=== PATIENT | female | born 1990 | race African-American/Black ===

== ENCOUNTER 2021-03-28 15:36 | Inpatient (IN) | payer OTHER ==
[2021-03-28 16:10] LABS: Hemoglobin 10.8 g/dL (12.0-15.5); Mean Corpuscular HGB CONC 30.2 g/dL (32.0-36.0); Mean Corpuscular Volume 86.1 fl (81.6-98.3); Mean Platelet Volume 9.2 fl (7.4-10.4); Platelet Count 393 10x3/uL (150-450); RBC Distribution Width 13.7 % (11.5-14.5); Red Blood Cell (RBC) Count 4.16 10x6/uL (3.90-5.03); White Blood Cell (WBC) Count 22.8 10x3/uL (3.5-10.5)
[2021-03-28 16:14] LABS: BHCG - Serum POSITIVE (NEGATIVE); Pregs Control Background? CLEAR/WHITE (CLR/WHITE); Pregs Control Bar Appear? YES (CONTROL BAR)
[2021-03-28 16:22] LABS: ALT (SGPT) 13 U/L (8-55); AST (SGOT) 14 U/L (5-34); Albumin 4.4 g/dL (3.5-5.0); Alkaline Phosphatase 86 U/L (40-110); Anion Gap 29 mmol/L (10-20); BUN (Urea Nitrogen) 26 mg/dL (7.0-18.7); Bilirubin, Total 0.5 mg/dL (0.2-1.2); Calc. Creatinine Clearance 0 mL/min (70-130); Calcium 9.3 mg/dL (7.8-10.44); Chloride 91 mmol/L (98-107); Globulin 4.3 g/dL (2.4-3.5); Lipase 18 U/L (8-78); Magnesium 2.2 mg/dL (1.6-2.6); Potassium 5.3 mmol/L (3.5-5.1); Protein, Total 8.7 g/dL (6.0-8.3); Sodium 124 mmol/L (136-145)
[2021-03-28 16:24] LABS: Carbon Dioxide 9 mmol/L (22-29); Glucose 737 mg/dL (70-105)
[2021-03-28 16:35] LABS: ALV-art Gradient 26.685 mmHg (0-20); CO2 Tension 21.9 mmHg (35.0-45.0); Calcium, Ionized (arterial) 1.17 mmol/L (1.12-1.30); Carboxyhemoglobin (COHb) 0.3 gm% (0.0-3.0); Hemoglobin (Hb) 10.8 g/dL (12.0-16.0); O2 Tension (PaO2), arterial 174.1 mmHg (80.0-100.0); Puncture Site RBA; pH, Arterial 7.28 (7.35-7.45)
[2021-03-28] MEDS ORDERED: Insulin Regular 300 UNITS/3 ML VIAL ONE (16:44)
[2021-03-28] MEDS ORDERED: Ondansetron PF 4 MG/2 ML Vial ONE (16:44)
[2021-03-28] MEDS ORDERED: Morphine 4 MG/ML VIAL ONE (16:44)
[2021-03-28] MEDS ORDERED: INSULIN REGULAR IN 0.9 % NACL 100 UNIT/100 ML BAG ONE (16:45)
[2021-03-28 16:52] LABS: MDiff Complete? YES
[2021-03-28 16:55] LABS: Lymphocytes 7 % (21-51)
[2021-03-28 16:56] LABS: Monocytes 3 % (0-10); Neutrophil 90 % (42-75)
[2021-03-28] MEDS ORDERED: Electrolyte Replacement Protocol 1 EACH IVPB PRN (16:56)
[2021-03-28] MEDS ORDERED: Sodium Chloride 0.9% 1,000 ML IV PRN ×4 (16:56)
[2021-03-28] MEDS ORDERED: Senokot S 8.6-50 MG TAB PO PRN (16:56)
[2021-03-28] MEDS ORDERED: NS 0.9% w/ 20 MEQ KCL 1,000 ML IV PRN ×2 (16:56)
[2021-03-28] MEDS ORDERED: Dextrose 5 %-0.45 % NaCl 1,000 ML IV PRN (16:56)
[2021-03-28 16:57] LABS: Hypochromia SLIGHT = 6-15 cells (100X) (0-5/hpf); Platelet Morphology Comment Appears Adequate
[2021-03-28 17:11] LABS: SARS-CoV-2 NAA Rapid Test DETECTED (NotDetected)
[2021-03-28] MEDS ORDERED: INSULIN REGULAR IN 0.9 % NACL 100 UNIT in Premix Bag 1 BAG IVPB SCH (17:15)
[2021-03-28 17:28] LABS: Bilirubin Neg (Negative); Blood, Urine Negative (Negative); Clarity Clear (Clear); Glucose, Urine (Dipstick) >=1000 mg/dL (Negative); Ketone, Urine 150 mg/dL (Negative); Leukocyte Negative (Negative); Nitrite Negative (Negative); Protein, Urine (Dipstick) 30 mg/dl (Neg-Trace); Specific Gravity, Urine 1.015 (1.002-1.036); Urobilinogen Normal mg/dL (Less than 2)
[2021-03-28] MEDS ORDERED: Morphine 2 MG/ML VIAL SLOW IVP PRN (17:29)
[2021-03-28 17:37] LABS: Bacteria/HPF None Seen HPF (None Seen); Mucous/LPF 1+ LPF (<2+); RBC/HPF 0-3 HPF (0-3); Squamous Epithelial 0-3 HPF (0-3); WBC/HPF 0-3 HPF (0-3)
[2021-03-28 17:50] LABS: Anion Gap 29 mmol/L (10-20); BUN (Urea Nitrogen) 26 mg/dL (7.0-18.7); Calc. Creatinine Clearance 0 mL/min (70-130); Calcium 8.8 mg/dL (7.8-10.44); Carbon Dioxide 10 mmol/L (22-29); Chloride 93 mmol/L (98-107); Potassium 4.6 mmol/L (3.5-5.1); Sodium 127 mmol/L (136-145)
[2021-03-28 17:54] LABS: Glucose 623 mg/dL (70-105)
[2021-03-28 18:24] VITALS: BMI 24.0
[2021-03-28 18:53] LABS: Lactic Acid 2.9 mmol/L (0.5-2.2)
[2021-03-28] MEDS: D5 1/2 NS w/20 mEq KCL 1,000 ML IV PRN ×2 (19:59→23:58)
[2021-03-28] MEDS: Ondansetron PF 4 MG/2 ML Vial IVP PRN (19:59)
[2021-03-28] MEDS: Morphine 4 MG/ML VIAL SLOW IVP PRN (20:03)
[2021-03-28] MEDS: Famotidine/PF 20 mg/2ml Vial SLOW IVP SCH (21:20)
[2021-03-28 21:24] LABS: Anion Gap 19 mmol/L (10-20); BUN (Urea Nitrogen) 24 mg/dL (7.0-18.7); Calc. Creatinine Clearance 59 mL/min (70-130); Calcium 8.3 mg/dL (7.8-10.44); Carbon Dioxide 14 mmol/L (22-29); Chloride 102 mmol/L (98-107); Glucose 287 mg/dL (70-105); Potassium 4.2 mmol/L (3.5-5.1); Sodium 131 mmol/L (136-145)
[2021-03-28] MEDS: Sucralfate 1 GM TAB PO SCH (22:40)
[2021-03-28] MEDS: Mag-Al 1200 mg/1200 mg/30 ML UDCUP PO PRN (22:53)
[2021-03-29] MEDS ORDERED: HYDROmorphone 0.5 MG/0.5 ML SYRINGE SLOW IVP SCH ×2 (01:00→08:30)
[2021-03-29 01:18] LABS: Anion Gap 12 mmol/L (10-20); BUN (Urea Nitrogen) 19 mg/dL (7.0-18.7); Calc. Creatinine Clearance 66 mL/min (70-130); Calcium 8.4 mg/dL (7.8-10.44); Carbon Dioxide 19 mmol/L (22-29); Chloride 104 mmol/L (98-107); Glucose 191 mg/dL (70-105); Potassium 3.9 mmol/L (3.5-5.1); Sodium 131 mmol/L (136-145)
[2021-03-29 04:03] LABS: Anion Gap 11 mmol/L (10-20); BUN (Urea Nitrogen) 16 mg/dL (7.0-18.7); Calc. Creatinine Clearance 75 mL/min (70-130); Calcium 8.4 mg/dL (7.8-10.44); Carbon Dioxide 18 mmol/L (22-29); Chloride 106 mmol/L (98-107); Glucose 123 mg/dL (70-105); Potassium 4.3 mmol/L (3.5-5.1); Sodium 131 mmol/L (136-145)
[2021-03-29 04:08] LABS: #Monocytes 1.7 10x3/uL (0.0-1.1); #Neutrophils 15.1 10x3/uL (1.5-8.4); %Basophils 0.2 % (0.0-2.0); %Eosinophils 0.1 % (0.0-6.0); %Lymphocytes 10.8 % (18.0-47.0); %Neutrophils 79.1 % (40.0-75.0); Mean Corpuscular Hemoglobin 26.5 pg (27.0-33.0); Mean Corpuscular Volume 80.3 fl (81.6-98.3); Mean Platelet Volume 9.2 fl (7.4-10.4); Platelet Count 325 10x3/uL (150-450); RBC Distribution Width 13.5 % (11.5-14.5); White Blood Cell (WBC) Count 19.2 10x3/uL (3.5-10.5)
[2021-03-29] MEDS: D5 1/2 NS w/20 mEq KCL 1,000 ML IV PRN (04:08)
[2021-03-29 05:29] LABS: Amphetamine Not Detected (NotDetected); Barbiturates Screen Not Detected (NotDetected); Benzodiazepine Screen Not Detected (NotDetected); Cocaine Metabolite Screen Not Detected (NotDetected); Methadone Not Detected (NotDetected); Methamphetamine Not Detected (NotDetected); Opiate Screen Detected (NotDetected); Oxycodone Screen Not Detected (NotDetected); Phencyclidine (PCP) Not Detected (NotDetected); THC/Cannabinoid Screen Not Detected (NotDetected); Tricyclic Screen Not Detected (NotDetected)
[2021-03-29] MEDS: Morphine 4 MG/ML VIAL SLOW IVP PRN ×5 (06:00→21:03)
[2021-03-29] MEDS: Famotidine/PF 20 mg/2ml Vial SLOW IVP SCH (08:03)
[2021-03-29] MEDS ORDERED: Lidocaine 2% Viscous Solution 20 ML, Aluminum & Magnesium Hydroxide 30 ML, Donnatal Eli... SSW SCH (08:15)
[2021-03-29] MEDS ORDERED: Dextrose 5% in Water 1,000 ML IV PRN (08:19)
[2021-03-29] MEDS: Pantoprazole 40 MG VIAL IVP SCH ×2 (08:39→21:11)
[2021-03-29] MEDS: Lantus 1000 UNITS/10 ML VIAL SC SCH (08:39)
[2021-03-29] MEDS: Sucralfate 1 GM TAB PO SCH (09:51)
[2021-03-29] MEDS: Prenatal Vitamin 1 TAB PO SCH (11:47)
[2021-03-29] MEDS: Metoclopramide HCl 10 MG/2 ML VIAL IVP SCH ×3 (11:47→21:12)
[2021-03-29 13:09] LABS: Hemoglobin A1c 11.7 % (4.0-6.0)
[2021-03-29] MEDS: HumaLOG 300 UNITS/3 ML VIAL SC PRN ×2 (15:36→21:12)
[2021-03-29] MEDS ORDERED: Lantus 1000 UNITS/10 ML VIAL SC SCH (21:00)
[2021-03-29] MEDS: diphenhydrAMINE 25 MG CAP PO PRN (21:44)
[2021-03-30] MEDS: Acetaminophen 325 MG TAB PO PRN (01:08)
[2021-03-30] MEDS: Mag-Al 1200 mg/1200 mg/30 ML UDCUP PO PRN (01:09)
[2021-03-30 04:41] LABS: Anion Gap 12 mmol/L (10-20); BUN (Urea Nitrogen) 11 mg/dL (7.0-18.7); Calc. Creatinine Clearance 83 mL/min (70-130); Calcium 8.5 mg/dL (7.8-10.44); Carbon Dioxide 18 mmol/L (22-29); Chloride 104 mmol/L (98-107); Glucose 288 mg/dL (70-105); Potassium 3.9 mmol/L (3.5-5.1); Sodium 130 mmol/L (136-145)
[2021-03-30 04:48] LABS: #Eosinphils 0.1 10x3/uL (0.0-0.5); #Monocytes 0.6 10x3/uL (0.0-1.1); #Neutrophils 6.7 10x3/uL (1.5-8.4); %Basophils 0.2 % (0.0-2.0); %Eosinophils 1.1 % (0.0-6.0); %Lymphocytes 19.7 % (18.0-47.0); %Monocytes 6.8 % (0.0-10.0); Hemoglobin 8.7 g/dL (12.0-15.5); Mean Corpuscular HGB CONC 31.8 g/dL (32.0-36.0); Mean Corpuscular Hemoglobin 26.1 pg (27.0-33.0); Mean Corpuscular Volume 82.3 fl (81.6-98.3); Mean Platelet Volume 9.3 fl (7.4-10.4); Platelet Count 277 10x3/uL (150-450); RBC Distribution Width 13.5 % (11.5-14.5); Red Blood Cell (RBC) Count 3.33 10x6/uL (3.90-5.03); White Blood Cell (WBC) Count 9.3 10x3/uL (3.5-10.5)
[2021-03-30] MEDS: HumaLOG 300 UNITS/3 ML VIAL SC PRN (05:49)
[2021-03-30] MEDS ORDERED: Mag-Al 1200 mg/1200 mg/30 ML UDCUP PO PRN (08:31)
[2021-03-30] MEDS: Pantoprazole 40 MG VIAL IVP SCH ×2 (08:52→20:18)
[2021-03-30] MEDS: Morphine 4 MG/ML VIAL SLOW IVP PRN ×3 (08:54→20:16)
[2021-03-30] MEDS: Lantus 1000 UNITS/10 ML VIAL SC SCH (08:59)
[2021-03-30] MEDS: Metoclopramide HCl 10 MG/2 ML VIAL IVP SCH ×4 (09:14→20:18)
[2021-03-30] MEDS: Prenatal Vitamin 1 TAB PO SCH (09:20)
[2021-03-30] MEDS: Sucralfate 1 GM TAB PO SCH ×3 (10:56→20:18)
[2021-03-30] MEDS: Dextrose 50% Abboject 50 ML SYRINGE SLOW IVP PRN (11:45)
[2021-03-30] MEDS: NS 0.9% w/ 20 MEQ KCL 1,000 ML/1,000 ML BAG IV SCH ×2 (12:03→23:37)
[2021-03-30] MEDS: cefTRIAXone\\ROCEPHIN 1 GM in Sodium Chloride 0.9% 100 ML IVPB SCH (20:18)
[2021-03-31] MEDS ORDERED: diphenhydrAMINE 50 MG/ML VIAL IVP SCH (00:15)
[2021-03-31] MEDS: HumaLOG 300 UNITS/3 ML VIAL SC PRN ×2 (00:26→21:48)
[2021-03-31] MEDS ORDERED: Lorazepam 2 MG/ML VIAL SLOW IVP SCH (00:30)
[2021-03-31] MEDS: Morphine 4 MG/ML VIAL SLOW IVP PRN ×5 (01:20→22:39)
[2021-03-31 04:25] LABS: #Eosinphils 0.1 10x3/uL (0.0-0.5); #Monocytes 0.5 10x3/uL (0.0-1.1); #Neutrophils 3.6 10x3/uL (1.5-8.4); %Basophils 0.3 % (0.0-2.0); %Eosinophils 1.1 % (0.0-6.0); %Lymphocytes 31.7 % (18.0-47.0); %Monocytes 8.6 % (0.0-10.0); %Neutrophils 58.1 % (40.0-75.0); Hemoglobin 8.5 g/dL (12.0-15.5); Mean Corpuscular HGB CONC 31.7 g/dL (32.0-36.0); Mean Corpuscular Hemoglobin 25.9 pg (27.0-33.0); Mean Corpuscular Volume 81.7 fl (81.6-98.3); Mean Platelet Volume 8.4 fl (7.4-10.4); Platelet Count 232 10x3/uL (150-450); RBC Distribution Width 13.4 % (11.5-14.5); Red Blood Cell (RBC) Count 3.28 10x6/uL (3.90-5.03); White Blood Cell (WBC) Count 6.2 10x3/uL (3.5-10.5)
[2021-03-31 05:20] LABS: Anion Gap 10 mmol/L (10-20); Calc. Creatinine Clearance 102 mL/min (70-130); Calcium 8.1 mg/dL (7.8-10.44); Carbon Dioxide 22 mmol/L (22-29); Chloride 108 mmol/L (98-107); Glucose 105 mg/dL (70-105); Potassium 3.7 mmol/L (3.5-5.1); Sodium 136 mmol/L (136-145)
[2021-03-31 05:38] LABS: BUN (Urea Nitrogen) 12 mg/dL (7.0-18.7)
[2021-03-31] MEDS: Sucralfate 1 GM TAB PO SCH ×4 (08:38→21:15)
[2021-03-31] MEDS: Pantoprazole 40 MG VIAL IVP SCH ×2 (11:45→21:15)
[2021-03-31] MEDS: Prenatal Vitamin 1 TAB PO SCH (11:45)
[2021-03-31] MEDS: NS 0.9% w/ 20 MEQ KCL 1,000 ML/1,000 ML BAG IV SCH (12:11)
[2021-03-31] MEDS: Ondansetron PF 4 MG/2 ML Vial IVP PRN (17:25)
[2021-03-31] MEDS: cefTRIAXone\\ROCEPHIN 1 GM in Sodium Chloride 0.9% 100 ML IVPB SCH (21:15)
[2021-04-01] MEDS: Morphine 4 MG/ML VIAL SLOW IVP PRN ×6 (03:16→22:26)
[2021-04-01] MEDS: NS 0.9% w/ 20 MEQ KCL 1,000 ML/1,000 ML BAG IV SCH ×2 (03:17→17:38)
[2021-04-01] MEDS: Ondansetron PF 4 MG/2 ML Vial IVP PRN (03:33)
[2021-04-01 05:48] LABS: Anion Gap 12 mmol/L (10-20); BUN (Urea Nitrogen) 8 mg/dL (7.0-18.7); Calc. Creatinine Clearance 104 mL/min (70-130); Calcium 8.3 mg/dL (7.8-10.44); Carbon Dioxide 20 mmol/L (22-29); Chloride 106 mmol/L (98-107); Glucose 177 mg/dL (70-105); Potassium 3.7 mmol/L (3.5-5.1); Sodium 134 mmol/L (136-145)
[2021-04-01] MEDS: Pantoprazole 40 MG VIAL IVP SCH ×2 (09:47→21:15)
[2021-04-01] MEDS: Sucralfate 1 GM TAB PO SCH ×3 (09:47→17:38)
[2021-04-01] MEDS: Prenatal Vitamin 1 TAB PO SCH (09:47)
[2021-04-01] MEDS: diphenhydrAMINE 25 MG CAP PO PRN ×2 (13:12→14:17)
[2021-04-01] MEDS: HumaLOG 300 UNITS/3 ML VIAL SC PRN ×2 (13:12→22:04)
[2021-04-01] MEDS ORDERED: Hydrocortisone 1% Cream 30 GM TUBE TOP PRN (13:27)
[2021-04-01] MEDS: Promethazine HCl 12.5 MG, Admixture Fee 1 EACH in Sodium Chloride 0.9% 50 ML IVPB PRN (13:56)
[2021-04-01] MEDS: Scopolamine 1.5 mg/72 hour Patch TD SCH (13:56)
[2021-04-01] MEDS: cefTRIAXone\\ROCEPHIN 1 GM in Sodium Chloride 0.9% 100 ML IVPB SCH (21:15)
[2021-04-01] MEDS: Sucralfate 1 GM/10 ML UDCUP PO SCH (21:17)
[2021-04-01] MEDS: Aluminum & Magnesium Hydroxide 60 ML, Lidocaine 2% Viscous Solution 30 ML, diphenhydrAM... PO SCH (22:00)
[2021-04-02] MEDS: Morphine 4 MG/ML VIAL SLOW IVP PRN ×4 (04:57→19:32)
[2021-04-02 05:38] LABS: Anion Gap 13 mmol/L (10-20); BUN (Urea Nitrogen) 7 mg/dL (7.0-18.7); Calc. Creatinine Clearance 91 mL/min (70-130); Calcium 8.6 mg/dL (7.8-10.44); Carbon Dioxide 23 mmol/L (22-29); Chloride 103 mmol/L (98-107); Glucose 141 mg/dL (70-105); Potassium 3.7 mmol/L (3.5-5.1); Sodium 135 mmol/L (136-145)
[2021-04-02] MEDS: Aluminum & Magnesium Hydroxide 60 ML, Lidocaine 2% Viscous Solution 30 ML, diphenhydrAM... PO SCH ×3 (08:12→22:33)
[2021-04-02] MEDS: NS 0.9% w/ 20 MEQ KCL 1,000 ML/1,000 ML BAG IV SCH ×2 (08:12→22:32)
[2021-04-02] MEDS: Sucralfate 1 GM/10 ML UDCUP PO SCH ×4 (08:13→22:33)
[2021-04-02] MEDS: Prenatal Vitamin 1 TAB PO SCH (08:13)
[2021-04-02] MEDS: Pantoprazole 40 MG VIAL IVP SCH ×2 (08:13→22:34)
[2021-04-02] MEDS: HumaLOG 300 UNITS/3 ML VIAL SC PRN ×2 (12:55→17:41)
[2021-04-02] MEDS: Ondansetron PF 4 MG/2 ML Vial IVP PRN (19:32)
[2021-04-02] MEDS: cefTRIAXone\\ROCEPHIN 1 GM in Sodium Chloride 0.9% 100 ML IVPB SCH (22:32)
[2021-04-03] MEDS: Morphine 4 MG/ML VIAL SLOW IVP PRN ×6 (00:10→21:30)
[2021-04-03 05:16] LABS: Anion Gap 13 mmol/L (10-20); BUN (Urea Nitrogen) 6 mg/dL (7.0-18.7); Calc. Creatinine Clearance 95 mL/min (70-130); Calcium 8.2 mg/dL (7.8-10.44); Carbon Dioxide 21 mmol/L (22-29); Chloride 102 mmol/L (98-107); Glucose 338 mg/dL (70-105); Sodium 132 mmol/L (136-145)
[2021-04-03] MEDS: HumaLOG 300 UNITS/3 ML VIAL SC PRN ×4 (05:48→21:57)
[2021-04-03] MEDS: Aluminum & Magnesium Hydroxide 60 ML, Lidocaine 2% Viscous Solution 30 ML, diphenhydrAM... PO SCH ×3 (07:52→21:52)
[2021-04-03] MEDS: Prenatal Vitamin 1 TAB PO SCH (07:52)
[2021-04-03] MEDS: Pantoprazole 40 MG VIAL IVP SCH ×2 (07:53→21:26)
[2021-04-03] MEDS: Sucralfate 1 GM/10 ML UDCUP PO SCH ×4 (07:53→21:26)
[2021-04-03] MEDS: NS 0.9% w/ 20 MEQ KCL 1,000 ML/1,000 ML BAG IV SCH ×2 (07:53→21:22)
[2021-04-03] MEDS: Lantus 1000 UNITS/10 ML VIAL SC SCH (08:52)
[2021-04-03] MEDS: Gabapentin 300 MG CAP PO SCH ×3 (08:58→21:28)
[2021-04-03] MEDS: Ondansetron PF 4 MG/2 ML Vial IVP PRN ×2 (13:52→18:29)
[2021-04-03] MEDS ORDERED: Lantus 1000 UNITS/10 ML VIAL SC SCH (21:00)
[2021-04-04] MEDS: Morphine 4 MG/ML VIAL SLOW IVP PRN ×5 (00:27→22:48)
[2021-04-04 04:57] LABS: Anion Gap 13 mmol/L (10-20); BUN (Urea Nitrogen) 7 mg/dL (7.0-18.7); Calc. Creatinine Clearance 80 mL/min (70-130); Calcium 8.4 mg/dL (7.8-10.44); Carbon Dioxide 21 mmol/L (22-29); Chloride 103 mmol/L (98-107); Glucose 368 mg/dL (70-105); Potassium 4.4 mmol/L (3.5-5.1); Sodium 133 mmol/L (136-145)
[2021-04-04] MEDS: Lantus 1000 UNITS/10 ML VIAL SC SCH ×2 (08:47→20:58)
[2021-04-04] MEDS: Sucralfate 1 GM/10 ML UDCUP PO SCH ×4 (08:47→20:10)
[2021-04-04] MEDS: Pantoprazole 40 MG VIAL IVP SCH ×2 (08:49→20:09)
[2021-04-04] MEDS: Gabapentin 300 MG CAP PO SCH ×3 (08:52→22:19)
[2021-04-04] MEDS: Prenatal Vitamin 1 TAB PO SCH (08:52)
[2021-04-04] MEDS: Aluminum & Magnesium Hydroxide 60 ML, Lidocaine 2% Viscous Solution 30 ML, diphenhydrAM... PO SCH ×3 (08:53→20:10)
[2021-04-04] MEDS: Scopolamine 1.5 mg/72 hour Patch TD SCH (14:50)
[2021-04-04] MEDS: NS 0.9% w/ 20 MEQ KCL 1,000 ML/1,000 ML BAG IV SCH (19:36)
[2021-04-04] MEDS: HumaLOG 300 UNITS/3 ML VIAL SC PRN (20:58)
[2021-04-05] MEDS: Morphine 4 MG/ML VIAL SLOW IVP PRN ×4 (03:11→21:14)
[2021-04-05 05:28] LABS: Anion Gap 13 mmol/L (10-20); BUN (Urea Nitrogen) 9 mg/dL (7.0-18.7); Calc. Creatinine Clearance 87 mL/min (70-130); Calcium 8.6 mg/dL (7.8-10.44); Carbon Dioxide 22 mmol/L (22-29); Chloride 100 mmol/L (98-107); Glucose 377 mg/dL (70-105); Potassium 3.8 mmol/L (3.5-5.1); Sodium 131 mmol/L (136-145)
[2021-04-05] MEDS: HumaLOG 300 UNITS/3 ML VIAL SC PRN ×3 (05:43→23:14)
[2021-04-05] MEDS: Pantoprazole 40 MG VIAL IVP SCH ×2 (08:47→21:13)
[2021-04-05] MEDS: Gabapentin 300 MG CAP PO SCH ×3 (08:47→21:11)
[2021-04-05] MEDS: Sucralfate 1 GM/10 ML UDCUP PO SCH ×4 (08:48→21:16)
[2021-04-05] MEDS: Lantus 1000 UNITS/10 ML VIAL SC SCH ×2 (08:48→23:14)
[2021-04-05] MEDS: Prenatal Vitamin 1 TAB PO SCH (08:48)
[2021-04-05] MEDS: Aluminum & Magnesium Hydroxide 60 ML, Lidocaine 2% Viscous Solution 30 ML, diphenhydrAM... PO SCH ×3 (08:48→21:15)
[2021-04-05] MEDS: Dextrose 50% Abboject 50 ML SYRINGE SLOW IVP PRN (10:10)
[2021-04-05] MEDS: Ondansetron PF 4 MG/2 ML Vial IVP PRN ×2 (10:11→16:23)
[2021-04-05] MEDS ORDERED: Lactated Ringer's 1,000 ML IV SCH (16:00)
[2021-04-05] MEDS: Lactated Ringer's 1,000 ML IV SCH (23:13)
[2021-04-06] MEDS: Morphine 4 MG/ML VIAL SLOW IVP PRN ×5 (04:09→22:10)
[2021-04-06 05:30] LABS: Anion Gap 12 mmol/L (10-20); BUN (Urea Nitrogen) 7 mg/dL (7.0-18.7); Calc. Creatinine Clearance 94 mL/min (70-130); Calcium 8.7 mg/dL (7.8-10.44); Carbon Dioxide 22 mmol/L (22-29); Chloride 104 mmol/L (98-107); Glucose 221 mg/dL (70-105); Potassium 3.7 mmol/L (3.5-5.1); Sodium 134 mmol/L (136-145)
[2021-04-06] MEDS: HumaLOG 300 UNITS/3 ML VIAL SC PRN (06:26)
[2021-04-06] MEDS ORDERED: Lactated Ringer's 1,000 ML IV SCH ×3 (10:00→23:45)
[2021-04-06] MEDS: Gabapentin 300 MG CAP PO SCH ×3 (10:27→22:03)
[2021-04-06] MEDS: Lantus 1000 UNITS/10 ML VIAL SC SCH ×2 (10:27→20:00)
[2021-04-06] MEDS: Lactated Ringer's 1,000 ML IV SCH (10:27)
[2021-04-06] MEDS: Sucralfate 1 GM/10 ML UDCUP PO SCH ×4 (10:27→22:00)
[2021-04-06] MEDS: Aluminum & Magnesium Hydroxide 60 ML, Lidocaine 2% Viscous Solution 30 ML, diphenhydrAM... PO SCH ×3 (10:28→22:00)
[2021-04-06] MEDS: Pantoprazole 40 MG VIAL IVP SCH (10:28)
[2021-04-06] MEDS: Prenatal Vitamin 1 TAB PO SCH (10:28)
[2021-04-06] MEDS: Ondansetron PF 4 MG/2 ML Vial IVP PRN ×2 (10:29→19:00)
[2021-04-06] MEDS: Acetaminophen 325 MG TAB PO PRN ×3 (10:29→18:59)
[2021-04-06] MEDS: Promethazine HCl 12.5 MG, Admixture Fee 1 EACH in Sodium Chloride 0.9% 50 ML IVPB PRN (15:17)
[2021-04-07] MEDS: Morphine 4 MG/ML VIAL SLOW IVP PRN ×4 (02:45→18:49)
[2021-04-07] MEDS: HumaLOG 300 UNITS/3 ML VIAL SC PRN (04:00)
[2021-04-07 05:53] LABS: Anion Gap 14 mmol/L (10-20); BUN (Urea Nitrogen) 8 mg/dL (7.0-18.7); Calc. Creatinine Clearance 87 mL/min (70-130); Calcium 8.4 mg/dL (7.8-10.44); Carbon Dioxide 20 mmol/L (22-29); Chloride 105 mmol/L (98-107); Glucose 250 mg/dL (70-105); Potassium 3.7 mmol/L (3.5-5.1); Sodium 135 mmol/L (136-145)
[2021-04-07] MEDS: Sucralfate 1 GM/10 ML UDCUP PO SCH ×4 (10:13→20:00)
[2021-04-07] MEDS: Gabapentin 300 MG CAP PO SCH ×3 (10:14→22:15)
[2021-04-07] MEDS: Prenatal Vitamin 1 TAB PO SCH (10:14)
[2021-04-07] MEDS: Lantus 1000 UNITS/10 ML VIAL SC SCH ×2 (10:14→22:00)
[2021-04-07] MEDS: Aluminum & Magnesium Hydroxide 60 ML, Lidocaine 2% Viscous Solution 30 ML, diphenhydrAM... PO SCH ×3 (10:16→20:00)
[2021-04-07] MEDS: Promethazine HCl 12.5 MG, Admixture Fee 1 EACH in Sodium Chloride 0.9% 50 ML IVPB PRN (17:34)
[2021-04-07] MEDS ORDERED: Heparin 10,000 UNITS/ 10 ML VIAL SLOW IVP SCH (18:30)
[2021-04-07] MEDS ORDERED: Heparin 25,000 units/D5W 500 ML IVPB SCH (18:30)
[2021-04-07 19:11] LABS: Platelet Count 252 10x3/uL (150-450)
[2021-04-07] MEDS ORDERED: Prochlorperazine Maleate 5 MG TAB PO PRN (20:21)
[2021-04-07] MEDS ORDERED: Apixaban 5 MG TAB PO SCH (21:00)
[2021-04-08] MEDS: Morphine 4 MG/ML VIAL SLOW IVP PRN ×4 (00:17→22:30)
[2021-04-08 01:23] LABS: PTT Greater than 139.0 sec (22.0-33.0)
[2021-04-08 03:46] LABS: Anion Gap 11 mmol/L (10-20); BUN (Urea Nitrogen) 10 mg/dL (7.0-18.7); Calc. Creatinine Clearance 96 mL/min (70-130); Carbon Dioxide 22 mmol/L (22-29); Chloride 104 mmol/L (98-107); Glucose 374 mg/dL (70-105); Potassium 4.3 mmol/L (3.5-5.1); Sodium 133 mmol/L (136-145)
[2021-04-08] MEDS: HumaLOG 300 UNITS/3 ML VIAL SC PRN (04:20)
[2021-04-08 04:27] LABS: PTT 79.7 sec (22.0-33.0)
[2021-04-08] MEDS: Prenatal Vitamin 1 TAB PO SCH (10:08)
[2021-04-08] MEDS: Gabapentin 300 MG CAP PO SCH ×3 (10:09→22:03)
[2021-04-08] MEDS: Sucralfate 1 GM/10 ML UDCUP PO SCH ×5 (10:09→22:02)
[2021-04-08] MEDS: Lantus 1000 UNITS/10 ML VIAL SC SCH ×2 (10:10→22:30)
[2021-04-08] MEDS: Aluminum & Magnesium Hydroxide 60 ML, Lidocaine 2% Viscous Solution 30 ML, diphenhydrAM... PO SCH ×3 (10:10→22:00)
[2021-04-08] MEDS: Enoxaparin Sodium 60 MG/0.6 ML SYRINGE SC SCH ×2 (10:11→22:03)
[2021-04-08] MEDS ORDERED: ERYTHROMYCIN IVPB SCH (13:00)
[2021-04-08] MEDS ORDERED: SODIUM CHLORIDE 0.9% IVPB SCH (13:00)
[2021-04-08] MEDS ORDERED: Famotidine 20 MG TAB PO SCH (21:00)
[2021-04-08] MEDS: Polyethylene Glycol 3350 17 GM Packet PO SCH (22:07)
[2021-04-09] MEDS: Morphine 4 MG/ML VIAL SLOW IVP PRN ×3 (02:16→14:34)
[2021-04-09 05:40] LABS: Anion Gap 10 mmol/L (10-20); BUN (Urea Nitrogen) 9 mg/dL (7.0-18.7); Calc. Creatinine Clearance 112 mL/min (70-130); Carbon Dioxide 22 mmol/L (22-29); Chloride 106 mmol/L (98-107); Glucose 216 mg/dL (70-105); Sodium 134 mmol/L (136-145)
[2021-04-09] MEDS ORDERED: Lantus 1000 UNITS/10 ML VIAL SC SCH ×2 (09:30→21:00)
[2021-04-09] MEDS ORDERED: Lidocaine Viscous Sol 2% 15 ml UD Cup ONE (09:47)
[2021-04-09] MEDS: Sucralfate 1 GM/10 ML UDCUP PO SCH ×2 (09:52→12:48)
[2021-04-09] MEDS: Enoxaparin Sodium 60 MG/0.6 ML SYRINGE SC SCH (10:03)
[2021-04-09] MEDS: Polyethylene Glycol 3350 17 GM Packet PO SCH (10:07)
[2021-04-09] MEDS: Gabapentin 300 MG CAP PO SCH ×2 (10:07→15:33)
[2021-04-09] MEDS: Prenatal Vitamin 1 TAB PO SCH (10:08)
[2021-04-09] MEDS: Aluminum & Magnesium Hydroxide 60 ML, Lidocaine 2% Viscous Solution 30 ML, diphenhydrAM... PO SCH ×2 (10:09→15:34)
[2021-04-09] MEDS: Erythromycin 200 MG/5 ML Oral Suspension PO SCH ×2 (11:08→12:07)
[2021-04-09 12:11] VITALS: BP 102/58; TEMP 98
[2021-04-09] MEDS: Lantus 1000 UNITS/10 ML VIAL SC SCH (12:44)
[2021-04-10] MEDS ORDERED: Lantus 1000 UNITS/10 ML VIAL SC SCH (09:00)
== END 2021-04-09 16:15 | disposition home or self-care (01) | DRG 831 ==
LOC: CSHERS 15:36 → CSHIMCU 17:21 → CSHTELE 03-31 10:19
PROVIDERS: ADMIT Family Medicine; ATTEND Hospitalist
PROC: 8E0ZXY6 Isolation (ICD-10-PCS; principal; 2021-03-28)
DX: O24.011 Pre-existing type 1 diabetes mellitus, in pregnancy, first trimester (principal); E10.10 Type 1 diabetes mellitus with ketoacidosis without coma; U07.1 COVID-19; G93.41 Metabolic encephalopathy; O88.811 Other embolism in pregnancy, first trimester; E44.0 Moderate protein-calorie malnutrition; O10.911 Unspecified pre-existing hypertension complicating pregnancy, first trimester; O98.511 Other viral diseases complicating pregnancy, first trimester; N39.0 Urinary tract infection, site not specified; O23.41 Unspecified infection of urinary tract in pregnancy, first trimester; O02.1 Missed abortion; E10.42 Type 1 diabetes mellitus with diabetic polyneuropathy; O99.281 Endocrine, nutritional and metabolic diseases complicating pregnancy, first trimester; F31.9 Bipolar disorder, unspecified; O99.341 Other mental disorders complicating pregnancy, first trimester; K21.00 Gastro-esophageal reflux disease with esophagitis, without bleeding; E10.43 Type 1 diabetes mellitus with diabetic autonomic (poly)neuropathy; K31.84 Gastroparesis; R13.19 Other dysphagia; O99.891 Other specified diseases and conditions complicating pregnancy; R33.9 Retention of urine, unspecified; Z91.14 Patient's other noncompliance with medication regimen; Z79.899 Other long term (current) drug therapy; Z79.4 Long term (current) use of insulin; Z83.3 Family history of diabetes mellitus; Z3A.01 Less than 8 weeks gestation of pregnancy; Z68.24 Body mass index [BMI] 24.0-24.9, adult
CPT/HCPCS: 36415; 36416; 36600; 70450; 71275; 74177; 76856; 80048; 80053; 80306; 81003; 81015; 82805; 83036; 83605; 83690; 83735; 83880; 84484; 84702; 84703; 85014; 85018; 85025; 85049; 85730; 87040; 87077; 87086; 87186; 93005; 93010; 93970; 96365; 96375; C9113; J0696; J1170; J1200; J1364; J1644; J1650; J1815; J2060; J2270; J2405; J2550; J2765; J3480; J3490; J7050; J7120; Q0163; S0028; U0002

== ENCOUNTER 2021-04-15 22:55 | Inpatient (IN) | payer OTHER ==
[2021-04-15] MEDS ORDERED: Fentanyl 100 MCG/2 ML VIAL ONE (23:31)
[2021-04-15 23:33] LABS: #Basophils 0.1 10x3/uL (0.0-0.2); #Eosinphils 0.1 10x3/uL (0.0-0.5); #Monocytes 0.6 10x3/uL (0.0-1.1); #Neutrophils 5.9 10x3/uL (1.5-8.4); %Basophils 0.7 % (0.0-2.0); %Eosinophils 1.3 % (0.0-6.0); %Lymphocytes 23.1 % (18.0-47.0); %Monocytes 6.7 % (0.0-10.0); %Neutrophils 67.9 % (40.0-75.0); Hemoglobin 11.3 g/dL (12.0-15.5); Mean Corpuscular HGB CONC 33.4 g/dL (32.0-36.0); Mean Corpuscular Volume 80.7 fl (81.6-98.3); Mean Platelet Volume 8.7 fl (7.4-10.4); Platelet Count 383 10x3/uL (150-450); RBC Distribution Width 14.1 % (11.5-14.5); Red Blood Cell (RBC) Count 4.19 10x6/uL (3.90-5.03); White Blood Cell (WBC) Count 8.7 10x3/uL (3.5-10.5)
[2021-04-15] MEDS ORDERED: Labetalol HCl 100 MG/20 ML VIAL ONE (23:44)
[2021-04-15 23:46] LABS: ALT (SGPT) 7 U/L (8-55); AST (SGOT) 13 U/L (5-34); Albumin 4.5 g/dL (3.5-5.0); Alkaline Phosphatase 56 U/L (40-110); Anion Gap 17 mmol/L (10-20); BUN (Urea Nitrogen) 13 mg/dL (7.0-18.7); Bilirubin, Total 0.4 mg/dL (0.2-1.2); Calc. Creatinine Clearance 0 mL/min (70-130); Carbon Dioxide 17 mmol/L (22-29); Chloride 104 mmol/L (98-107); Globulin 4.2 g/dL (2.4-3.5); Glucose 151 mg/dL (70-105); Potassium 3.5 mmol/L (3.5-5.1); Protein, Total 8.7 g/dL (6.0-8.3); Sodium 134 mmol/L (136-145)
[2021-04-16] MEDS ORDERED: Ondansetron PF 4 MG/2 ML Vial ONE ×2 (00:09→07:38)
[2021-04-16] MEDS ORDERED: Morphine 4 MG/ML VIAL ONE ×4 (00:28→09:57)
[2021-04-16] MEDS ORDERED: diphenhydrAMINE 50 MG/ML VIAL ONE ×4 (00:36→10:48)
[2021-04-16] MEDS ORDERED: Fentanyl 100 MCG/2 ML VIAL ONE (02:06)
[2021-04-16 03:52] LABS: Bilirubin Neg (Negative); Blood, Urine 10 (Negative); Clarity Clear (Clear); Glucose, Urine (Dipstick) >=1000 mg/dL (Negative); Ketone, Urine 150 mg/dL (Negative); Leukocyte 25 (Negative); Nitrite Negative (Negative); Protein, Urine (Dipstick) 100 mg/dl (Neg-Trace); Urobilinogen Normal mg/dL (Less than 2)
[2021-04-16 04:07] LABS: Bacteria/HPF 2+ HPF (None Seen); RBC/HPF 0-3 HPF (0-3); Renal Epithelial 0-3 HPF (None Seen); Squamous Epithelial 21-50 HPF (0-3)
[2021-04-16] MEDS ORDERED: Dextrose 50% Abboject 50 ML SYRINGE SLOW IVP PRN (05:29)
[2021-04-16] MEDS ORDERED: Dextrose 5% in Water 1,000 ML IV PRN (05:29)
[2021-04-16] MEDS ORDERED: Calcium Carbonate 500 MG ChewTAB PO PRN (05:29)
[2021-04-16] MEDS ORDERED: Labetalol HCl 100 MG/20 ML VIAL SLOW IVP PRN (05:33)
[2021-04-16] MEDS ORDERED: Lactated Ringer's 500 ML IV SCH (06:00)
[2021-04-16] MEDS ORDERED: Potassium Chloride 20 MEQ in Premix Bag 1 BAG IVPB SCH (06:15)
[2021-04-16] MEDS ORDERED: Sucralfate 1 GM TAB PO SCH (07:30)
[2021-04-16] MEDS ORDERED: Enoxaparin Sodium 40 MG/0.4 ML SYRINGE SC SCH (09:00)
[2021-04-16] MEDS ORDERED: Enoxaparin Sodium 60 MG/0.6 ML SYRINGE ONE ×2 (12:47→20:24)
[2021-04-16] MEDS: Enoxaparin Sodium 60 MG/0.6 ML SYRINGE SC SCH ×2 (12:50→23:00)
[2021-04-16] MEDS: Labetalol HCl 100 MG TAB PO SCH ×2 (12:51→22:00)
[2021-04-16] MEDS: Morphine 4 MG/ML VIAL SLOW IVP PRN ×3 (12:51→23:03)
[2021-04-16] MEDS: Pantoprazole 40 MG VIAL IVP SCH ×2 (12:51→22:45)
[2021-04-16] MEDS: NIFEdipine XL 30 MG TAB PO SCH (12:51)
[2021-04-16] MEDS: Prenatal Vitamin 1 TAB PO SCH (12:52)
[2021-04-16] MEDS: pyridOXINE 50 MG (B6) TAB PO SCH ×3 (12:52→23:09)
[2021-04-16] MEDS: Sucralfate 1 GM TAB PO SCH ×3 (12:52→22:20)
[2021-04-16] MEDS: Lactated Ringer's 1,000 ML IV SCH ×2 (13:35→18:26)
[2021-04-16] MEDS: Lantus 1000 UNITS/10 ML VIAL SC SCH (13:36)
[2021-04-16] MEDS: diphenhydrAMINE 50 MG/ML VIAL IVP PRN ×2 (13:37→18:28)
[2021-04-16 14:27] LABS: SARS-CoV-2 NAA Rapid Test Not Detected (NotDetected)
[2021-04-16 14:37] LABS: Amphetamine Not Detected (NotDetected); Barbiturates Screen Not Detected (NotDetected); Benzodiazepine Screen Not Detected (NotDetected); Cocaine Metabolite Screen Not Detected (NotDetected); Methadone Not Detected (NotDetected); Methamphetamine Not Detected (NotDetected); Opiate Screen Detected (NotDetected); Oxycodone Screen Not Detected (NotDetected); Phencyclidine (PCP) Not Detected (NotDetected); THC/Cannabinoid Screen Not Detected (NotDetected); Tricyclic Screen Not Detected (NotDetected)
[2021-04-16] MEDS ORDERED: Promethazine HCl 12.5 MG in Sodium Chloride 0.9% 50 ML IVPB PRN (14:50)
[2021-04-16 20:33] VITALS: BMI 22.1
[2021-04-16] MEDS: HumaLOG 300 UNITS/3 ML VIAL SC PRN (23:55)
[2021-04-17] MEDS: diphenhydrAMINE 50 MG/ML VIAL IVP PRN (00:21)
[2021-04-17] MEDS: Lactated Ringer's 1,000 ML IV SCH ×2 (02:00→08:56)
[2021-04-17] MEDS: Morphine 4 MG/ML VIAL SLOW IVP PRN (02:44)
[2021-04-17 06:14] LABS: #Basophils 0.1 10x3/uL (0.0-0.2); #Eosinphils 0.1 10x3/uL (0.0-0.5); #Monocytes 0.6 10x3/uL (0.0-1.1); #Neutrophils 5.5 10x3/uL (1.5-8.4); %Basophils 0.6 % (0.0-2.0); %Eosinophils 0.6 % (0.0-6.0); %Lymphocytes 25.3 % (18.0-47.0); %Monocytes 6.6 % (0.0-10.0); %Neutrophils 66.5 % (40.0-75.0); Hemoglobin 8.7 g/dL (12.0-15.5); Mean Corpuscular HGB CONC 32.5 g/dL (32.0-36.0); Mean Corpuscular Hemoglobin 27.3 pg (27.0-33.0); Platelet Count 311 10x3/uL (150-450); RBC Distribution Width 14.7 % (11.5-14.5); Red Blood Cell (RBC) Count 3.19 10x6/uL (3.90-5.03); White Blood Cell (WBC) Count 8.3 10x3/uL (3.5-10.5)
[2021-04-17 06:32] LABS: ALT (SGPT) 7 U/L (8-55); AST (SGOT) 10 U/L (5-34); Albumin 3.5 g/dL (3.5-5.0); Alkaline Phosphatase 45 U/L (40-110); Anion Gap 15 mmol/L (10-20); BUN (Urea Nitrogen) 15 mg/dL (7.0-18.7); Bilirubin, Total 0.4 mg/dL (0.2-1.2); Calc. Creatinine Clearance 85 mL/min (70-130); Calcium 8.9 mg/dL (7.8-10.44); Carbon Dioxide 15 mmol/L (22-29); Chloride 111 mmol/L (98-107); Globulin 3.1 g/dL (2.4-3.5); Glucose 214 mg/dL (70-105); Potassium 3.8 mmol/L (3.5-5.1); Protein, Total 6.6 g/dL (6.0-8.3); Sodium 137 mmol/L (136-145)
[2021-04-17] MEDS: Labetalol HCl 100 MG TAB PO SCH ×2 (08:48→21:48)
[2021-04-17] MEDS: NIFEdipine XL 30 MG TAB PO SCH (08:48)
[2021-04-17] MEDS: Metoclopramide HCl 10 MG/2 ML VIAL IVP SCH ×3 (08:48→20:02)
[2021-04-17] MEDS: Enoxaparin Sodium 60 MG/0.6 ML SYRINGE SC SCH ×2 (08:48→21:48)
[2021-04-17] MEDS: Pantoprazole 40 MG VIAL IVP SCH ×2 (08:49→21:48)
[2021-04-17] MEDS: Prenatal Vitamin 1 TAB PO SCH (08:56)
[2021-04-17] MEDS: Lantus 1000 UNITS/10 ML VIAL SC SCH (08:56)
[2021-04-17] MEDS: Acetaminophen 325 MG TAB PO PRN ×3 (09:07→20:11)
[2021-04-17] MEDS: pyridOXINE 50 MG (B6) TAB PO SCH ×3 (09:10→22:30)
[2021-04-17] MEDS: Sucralfate 1 GM TAB PO SCH ×3 (09:10→22:30)
[2021-04-17] MEDS ORDERED: NPH, Human Insulin Isophane 300 UNIT/3 ML VIAL SC SCH (09:45)
[2021-04-17] MEDS ORDERED: Acetaminophen 650 MG Suppository PR PRN (11:09)
[2021-04-17] MEDS: HumaLOG 300 UNITS/3 ML VIAL SC PRN ×2 (11:09→22:25)
[2021-04-17] MEDS: diphenhydrAMINE 50 MG/ML VIAL IVP SCH ×3 (11:23→20:00)
[2021-04-17 12:10] LABS: #Monocytes 0.4 10x3/uL (0.0-1.1); #Neutrophils 5.5 10x3/uL (1.5-8.4); %Basophils 0.4 % (0.0-2.0); %Eosinophils 0.4 % (0.0-6.0); %Lymphocytes 24.9 % (18.0-47.0); %Monocytes 4.8 % (0.0-10.0); %Neutrophils 69.1 % (40.0-75.0); Hemoglobin 9.5 g/dL (12.0-15.5); Mean Corpuscular HGB CONC 32.2 g/dL (32.0-36.0); Mean Corpuscular Hemoglobin 26.9 pg (27.0-33.0); Mean Corpuscular Volume 83.6 fl (81.6-98.3); Mean Platelet Volume 8.8 fl (7.4-10.4); Platelet Count 332 10x3/uL (150-450); RBC Distribution Width 14.8 % (11.5-14.5); Red Blood Cell (RBC) Count 3.53 10x6/uL (3.90-5.03); White Blood Cell (WBC) Count 7.9 10x3/uL (3.5-10.5)
[2021-04-17 12:18] LABS: Actual Bicarbonate (HCO3v) 15 mEq/L (22-28); Base Excess -7.6 mEq/L (-2.0 to +3.0); Calcium, Ionized (venous) 1.18 mmol/L (1.16-1.32); Chloride (VBG) 105 mmol/L (98-106); Hemoglobin (Hb) 10.2 g/dL (11.7-15.5); Potassium (VBG) 3.57 mmol/L (3.70-5.30); Puncture Site Other Site; Sodium 135.4 mmol/L (133-146); pH (venous) 7.44 (7.32-7.43)
[2021-04-17 12:29] LABS: ALT (SGPT) 7 U/L (8-55); AST (SGOT) 11 U/L (5-34); Albumin 3.7 g/dL (3.5-5.0); Alkaline Phosphatase 46 U/L (40-110); Anion Gap 15 mmol/L (10-20); BUN (Urea Nitrogen) 15 mg/dL (7.0-18.7); Bilirubin, Total 0.5 mg/dL (0.2-1.2); Calc. Creatinine Clearance 80 mL/min (70-130); Calcium 9.1 mg/dL (7.8-10.44); Carbon Dioxide 15 mmol/L (22-29); Chloride 110 mmol/L (98-107); Globulin 3.3 g/dL (2.4-3.5); Glucose 260 mg/dL (70-105); Potassium 3.7 mmol/L (3.5-5.1); Sodium 136 mmol/L (136-145)
[2021-04-17] MEDS: Dextrose 5%-Lactated Ringers 1,000 ML IV SCH (16:15)
[2021-04-17 19:03] LABS: Bilirubin Neg (Negative); Blood, Urine Negative (Negative); Clarity Clear (Clear); Glucose, Urine (Dipstick) >=1000 mg/dL (Negative); Ketone, Urine 150 mg/dL (Negative); Leukocyte Negative (Negative); Nitrite Negative (Negative); Protein, Urine (Dipstick) 100 mg/dl (Neg-Trace); Specific Gravity, Urine 1.015 (1.002-1.036); Urobilinogen Normal mg/dL (Less than 2)
[2021-04-17 19:12] LABS: Bacteria/HPF 3+ HPF (None Seen); RBC/HPF None Seen HPF (0-3); WBC/HPF 0-3 HPF (0-3)
[2021-04-17] MEDS ORDERED: Lantus 1000 UNITS/10 ML VIAL SC SCH (21:00)
[2021-04-18] MEDS: Metoclopramide HCl 10 MG/2 ML VIAL IVP SCH ×4 (01:42→22:00)
[2021-04-18] MEDS: diphenhydrAMINE 50 MG/ML VIAL IVP SCH ×6 (01:42→18:44)
[2021-04-18] MEDS: Acetaminophen 325 MG TAB PO PRN (01:57)
[2021-04-18] MEDS ORDERED: Ibuprofen 600 MG TAB PO PRN (03:56)
[2021-04-18] MEDS ORDERED: Morphine 4 MG/ML VIAL SLOW IVP PRN (03:57)
[2021-04-18] MEDS: HumaLOG 300 UNITS/3 ML VIAL SC PRN ×2 (04:35→18:54)
[2021-04-18 04:37] LABS: #Eosinphils 0.1 10x3/uL (0.0-0.5); #Monocytes 0.4 10x3/uL (0.0-1.1); #Neutrophils 4.6 10x3/uL (1.5-8.4); %Basophils 0.4 % (0.0-2.0); %Lymphocytes 26.8 % (18.0-47.0); %Monocytes 5.7 % (0.0-10.0); %Neutrophils 65.8 % (40.0-75.0); Hemoglobin 8.6 g/dL (12.0-15.5); Mean Corpuscular HGB CONC 32.1 g/dL (32.0-36.0); Mean Corpuscular Hemoglobin 26.7 pg (27.0-33.0); Mean Corpuscular Volume 83.2 fl (81.6-98.3); Mean Platelet Volume 9.4 fl (7.4-10.4); Platelet Count 337 10x3/uL (150-450); RBC Distribution Width 14.8 % (11.5-14.5); Red Blood Cell (RBC) Count 3.22 10x6/uL (3.90-5.03)
[2021-04-18 04:47] LABS: Anion Gap 11 mmol/L (10-20); BUN (Urea Nitrogen) 13 mg/dL (7.0-18.7); Calc. Creatinine Clearance 93 mL/min (70-130); Calcium 8.8 mg/dL (7.8-10.44); Carbon Dioxide 17 mmol/L (22-29); Chloride 109 mmol/L (98-107); Glucose 190 mg/dL (70-105); Magnesium 1.4 mg/dL (1.6-2.6); Phosphorus 2.3 mg/dL (2.3-4.7); Sodium 134 mmol/L (136-145)
[2021-04-18 04:50] LABS: Potassium 2.8 mmol/L (3.5-5.1)
[2021-04-18] MEDS ORDERED: Magnesium Sulfate 3 GM in Sodium Chloride 0.9% 100 ML IVPB SCH (05:15)
[2021-04-18] MEDS: Dextrose 5%-Lactated Ringers 1,000 ML IV SCH (05:46)
[2021-04-18] MEDS ORDERED: Potassium Chloride 20 MEQ in Premix Bag 1 BAG IVPB SCH (06:00)
[2021-04-18] MEDS ORDERED: Magnesium 2 GM/50 ML 4 GM in Premix Bag 1 BAG IVPB SCH (06:00)
[2021-04-18] MEDS: NS 0.9% w/ 40 MEQ KCL 1,000 ML IV SCH (07:01)
[2021-04-18] MEDS: Potassium Chloride 20 MEQ in Premix Bag 1 BAG IVPB SCH ×4 (08:57→15:28)
[2021-04-18] MEDS: Pantoprazole 40 MG VIAL IVP SCH ×2 (08:58→22:00)
[2021-04-18] MEDS ORDERED: Iron, Sodium Ferric Gluconate 125 MG, Admixture Fee 1 EACH in Sodium Chloride 0.9% 100 ML IVPB SCH (09:00)
[2021-04-18] MEDS ORDERED: Lantus 1000 UNITS/10 ML VIAL SC SCH (09:00)
[2021-04-18] MEDS: Lantus 1000 UNITS/10 ML VIAL SC SCH ×2 (10:11→15:34)
[2021-04-18] MEDS: Enoxaparin Sodium 60 MG/0.6 ML SYRINGE SC SCH ×2 (10:17→22:00)
[2021-04-18] MEDS: Acetaminophen 325 MG TAB PO SCH ×4 (10:18→22:00)
[2021-04-18] MEDS: pyridOXINE 50 MG (B6) TAB PO SCH ×3 (10:19→22:00)
[2021-04-18] MEDS: Labetalol HCl 100 MG TAB PO SCH ×2 (10:19→22:00)
[2021-04-18] MEDS: Prenatal Vitamin 1 TAB PO SCH (10:19)
[2021-04-18] MEDS: Sucralfate 1 GM TAB PO SCH ×3 (10:20→21:00)
[2021-04-18 10:41] LABS: Anion Gap 10 mmol/L (10-20); BUN (Urea Nitrogen) 11 mg/dL (7.0-18.7); Calc. Creatinine Clearance 104 mL/min (70-130); Calcium 8.5 mg/dL (7.8-10.44); Carbon Dioxide 19 mmol/L (22-29); Chloride 109 mmol/L (98-107); Glucose 113 mg/dL (70-105); Potassium 3.1 mmol/L (3.5-5.1); Sodium 135 mmol/L (136-145)
[2021-04-18] MEDS: NIFEdipine XL 30 MG TAB PO SCH (13:30)
[2021-04-18 13:45] LABS: Hemoglobin A1c 10.6 % (4.0-6.0)
[2021-04-18 23:47] LABS: Anion Gap 9 mmol/L (10-20); BUN (Urea Nitrogen) 12 mg/dL (7.0-18.7); Calc. Creatinine Clearance 93 mL/min (70-130); Calcium 8.5 mg/dL (7.8-10.44); Carbon Dioxide 17 mmol/L (22-29); Chloride 110 mmol/L (98-107); Glucose 196 mg/dL (70-105); Magnesium 1.7 mg/dL (1.6-2.6); Potassium 3.2 mmol/L (3.5-5.1); Sodium 133 mmol/L (136-145)
[2021-04-19] MEDS: Acetaminophen 325 MG TAB PO SCH ×6 (02:00→21:06)
[2021-04-19] MEDS: Metoclopramide HCl 10 MG/2 ML VIAL IVP SCH ×3 (02:19→13:23)
[2021-04-19] MEDS: NS 0.9% w/ 40 MEQ KCL 1,000 ML IV SCH ×2 (05:23→16:07)
[2021-04-19] MEDS: HumaLOG 300 UNITS/3 ML VIAL SC PRN ×2 (05:24→21:18)
[2021-04-19 06:25] LABS: #Eosinphils 0.2 10x3/uL (0.0-0.5); #Monocytes 0.5 10x3/uL (0.0-1.1); #Neutrophils 3.5 10x3/uL (1.5-8.4); %Basophils 0.3 % (0.0-2.0); %Eosinophils 2.5 % (0.0-6.0); %Lymphocytes 34.4 % (18.0-47.0); %Monocytes 7.3 % (0.0-10.0); Hemoglobin 7.8 g/dL (12.0-15.5); Mean Corpuscular HGB CONC 31.2 g/dL (32.0-36.0); Mean Corpuscular Hemoglobin 26.6 pg (27.0-33.0); Mean Corpuscular Volume 85.3 fl (81.6-98.3); Mean Platelet Volume 9.1 fl (7.4-10.4); Platelet Count 286 10x3/uL (150-450); RBC Distribution Width 14.7 % (11.5-14.5); Red Blood Cell (RBC) Count 2.93 10x6/uL (3.90-5.03); White Blood Cell (WBC) Count 6.4 10x3/uL (3.5-10.5)
[2021-04-19 06:45] LABS: Anion Gap 10 mmol/L (10-20); BUN (Urea Nitrogen) 11 mg/dL (7.0-18.7); Calc. Creatinine Clearance 86 mL/min (70-130); Calcium 7.9 mg/dL (7.8-10.44); Carbon Dioxide 16 mmol/L (22-29); Chloride 108 mmol/L (98-107); Glucose 335 mg/dL (70-105); Magnesium 1.6 mg/dL (1.6-2.6); Phosphorus 2.5 mg/dL (2.3-4.7); Potassium 3.3 mmol/L (3.5-5.1); Sodium 131 mmol/L (136-145)
[2021-04-19] MEDS: pyridOXINE 50 MG (B6) TAB PO SCH ×3 (08:56→21:09)
[2021-04-19] MEDS: Enoxaparin Sodium 60 MG/0.6 ML SYRINGE SC SCH ×2 (08:56→21:10)
[2021-04-19] MEDS: Prenatal Vitamin 1 TAB PO SCH (08:56)
[2021-04-19] MEDS: Sucralfate 1 GM TAB PO SCH ×3 (08:56→21:09)
[2021-04-19 08:57] LABS: SARS-CoV-2 PCR by NAA Not Detected (NotDetected)
[2021-04-19] MEDS: Pantoprazole 40 MG VIAL IVP SCH ×2 (08:57→21:09)
[2021-04-19] MEDS: Iron Polysaccharides Complex 150 MG CAP PO SCH (08:58)
[2021-04-19] MEDS: Labetalol HCl 100 MG TAB PO SCH ×2 (08:58→21:07)
[2021-04-19] MEDS: NIFEdipine XL 30 MG TAB PO SCH (08:59)
[2021-04-19] MEDS: Lantus 1000 UNITS/10 ML VIAL SC SCH (09:01)
[2021-04-19] MEDS ORDERED: diphenhydrAMINE 50 MG CAP PO SCH (16:30)
[2021-04-19] MEDS: Zolpidem Tartrate 5 MG TAB PO PRN (21:22)
[2021-04-20 04:44] LABS: Anion Gap 10 mmol/L (10-20); BUN (Urea Nitrogen) 9 mg/dL (7.0-18.7); Calc. Creatinine Clearance 107 mL/min (70-130); Calcium 7.9 mg/dL (7.8-10.44); Carbon Dioxide 17 mmol/L (22-29); Chloride 113 mmol/L (98-107); Glucose 90 mg/dL (70-105); Magnesium 1.5 mg/dL (1.6-2.6); Phosphorus 3.1 mg/dL (2.3-4.7); Potassium 3.7 mmol/L (3.5-5.1); Sodium 136 mmol/L (136-145)
[2021-04-20 04:56] LABS: #Eosinphils 0.2 10x3/uL (0.0-0.5); #Monocytes 0.4 10x3/uL (0.0-1.1); #Neutrophils 2.9 10x3/uL (1.5-8.4); %Basophils 0.2 % (0.0-2.0); %Eosinophils 2.7 % (0.0-6.0); %Lymphocytes 36.3 % (18.0-47.0); %Monocytes 6.9 % (0.0-10.0); %Neutrophils 53.7 % (40.0-75.0); Hemoglobin 7.8 g/dL (12.0-15.5); Mean Corpuscular HGB CONC 31.1 g/dL (32.0-36.0); Mean Corpuscular Hemoglobin 26.4 pg (27.0-33.0); Mean Corpuscular Volume 85.1 fl (81.6-98.3); Mean Platelet Volume 9.4 fl (7.4-10.4); Platelet Count 294 10x3/uL (150-450); Red Blood Cell (RBC) Count 2.95 10x6/uL (3.90-5.03); White Blood Cell (WBC) Count 5.5 10x3/uL (3.5-10.5)
[2021-04-20 05:01] LABS: Syphilis Antibody Nonreactive (Nonreactive); Syphilis Antibody Index 0.04 S/CO (<1.00 Non-Reactive)
[2021-04-20] MEDS: NS 0.9% w/ 40 MEQ KCL 1,000 ML IV SCH ×4 (05:42→16:42)
[2021-04-20] MEDS: Ondansetron PF 4 MG/2 ML Vial IVP PRN ×3 (05:43→17:39)
[2021-04-20] MEDS: Acetaminophen 325 MG TAB PO SCH ×5 (06:59→20:54)
[2021-04-20] MEDS ORDERED: Iron Sucrose Complex 100 MG in Sodium Chloride 0.9% 100 ML IVPB SCH (09:00)
[2021-04-20] MEDS: Magnesium 2 GM/50 ML 2 GM in Premix Bag 1 BAG IVPB SCH ×4 (09:29→11:00)
[2021-04-20] MEDS: Iron Polysaccharides Complex 150 MG CAP PO SCH (09:30)
[2021-04-20] MEDS: pyridOXINE 50 MG (B6) TAB PO SCH ×3 (09:30→20:37)
[2021-04-20] MEDS: Sucralfate 1 GM TAB PO SCH ×3 (09:30→20:38)
[2021-04-20] MEDS: Labetalol HCl 100 MG TAB PO SCH ×2 (09:30→20:37)
[2021-04-20] MEDS: Prenatal Vitamin 1 TAB PO SCH (09:30)
[2021-04-20] MEDS: Pantoprazole 40 MG VIAL IVP SCH ×2 (09:31→20:38)
[2021-04-20] MEDS: NIFEdipine XL 30 MG TAB PO SCH (09:31)
[2021-04-20] MEDS: Enoxaparin Sodium 60 MG/0.6 ML SYRINGE SC SCH ×2 (09:31→20:37)
[2021-04-20] MEDS: Lantus 1000 UNITS/10 ML VIAL SC SCH (09:34)
[2021-04-20] MEDS ORDERED: diphenhydrAMINE 50 MG CAP PO SCH (11:00)
[2021-04-20] MEDS ORDERED: Iron, Sodium Ferric Gluconate 125 MG in Sodium Chloride 0.9% 100 ML IVPB SCH (15:00)
[2021-04-20] MEDS: Zolpidem Tartrate 5 MG TAB PO PRN (20:53)
[2021-04-20] MEDS ORDERED: Doxylamine 25 MG TAB PO SCH (21:00)
[2021-04-21] MEDS: Acetaminophen 325 MG TAB PO SCH ×4 (02:53→14:01)
[2021-04-21 04:23] LABS: #Eosinphils 0.2 10x3/uL (0.0-0.5); #Monocytes 0.4 10x3/uL (0.0-1.1); %Basophils 0.2 % (0.0-2.0); %Eosinophils 3.7 % (0.0-6.0); %Lymphocytes 33.2 % (18.0-47.0); %Monocytes 7.9 % (0.0-10.0); %Neutrophils 54.8 % (40.0-75.0); Hemoglobin 8.2 g/dL (12.0-15.5); Mean Corpuscular HGB CONC 32.2 g/dL (32.0-36.0); Mean Corpuscular Hemoglobin 26.9 pg (27.0-33.0); Mean Corpuscular Volume 83.6 fl (81.6-98.3); Mean Platelet Volume 9.8 fl (7.4-10.4); Platelet Count 286 10x3/uL (150-450); RBC Distribution Width 15.3 % (11.5-14.5); Red Blood Cell (RBC) Count 3.05 10x6/uL (3.90-5.03); White Blood Cell (WBC) Count 5.5 10x3/uL (3.5-10.5)
[2021-04-21] MEDS: HumaLOG 300 UNITS/3 ML VIAL SC PRN ×4 (05:06→13:09)
[2021-04-21 05:17] LABS: Anion Gap 11 mmol/L (10-20); BUN (Urea Nitrogen) 7 mg/dL (7.0-18.7); Calc. Creatinine Clearance 98 mL/min (70-130); Calcium 8.1 mg/dL (7.8-10.44); Carbon Dioxide 19 mmol/L (22-29); Chloride 108 mmol/L (98-107); Glucose 165 mg/dL (70-105); Magnesium 1.7 mg/dL (1.6-2.6); Potassium 3.8 mmol/L (3.5-5.1); Sodium 134 mmol/L (136-145)
[2021-04-21] MEDS: NS 0.9% w/ 40 MEQ KCL 1,000 ML IV SCH (05:27)
[2021-04-21] MEDS: Lantus 1000 UNITS/10 ML VIAL SC SCH ×2 (09:40→11:47)
[2021-04-21] MEDS: NIFEdipine XL 30 MG TAB PO SCH (09:41)
[2021-04-21] MEDS: Sucralfate 1 GM TAB PO SCH (09:41)
[2021-04-21] MEDS: Iron Polysaccharides Complex 150 MG CAP PO SCH (09:41)
[2021-04-21] MEDS: Prenatal Vitamin 1 TAB PO SCH (09:41)
[2021-04-21] MEDS: Labetalol HCl 100 MG TAB PO SCH (09:41)
[2021-04-21] MEDS: Enoxaparin Sodium 60 MG/0.6 ML SYRINGE SC SCH (09:41)
[2021-04-21] MEDS: Pantoprazole 40 MG VIAL IVP SCH (09:42)
[2021-04-21] MEDS: pyridOXINE 50 MG (B6) TAB PO SCH (09:44)
[2021-04-21 16:57] VITALS: BP 102/57; TEMP 99.3
[2021-04-22 11:28] LABS: Chlam.trachomatis by PCR,Urine Not Detected (NotDetected)
== END 2021-04-21 15:30 | DRG 832 ==
LOC: CSHERS 22:55 → INTOOBSV 04-16 05:29 → CSHTELE 04-16 05:29 → UNDOADMIN 04-16 12:23 → CSHTELE 04-16 12:23 → OBSVTOIN 04-17 10:54
PROVIDERS: ADMIT Internal Medicine; ATTEND Family Medicine
DX: O24.911 Unspecified diabetes mellitus in pregnancy, first trimester (principal); N17.9 Acute kidney failure, unspecified; O26.831 Pregnancy related renal disease, first trimester; O10.911 Unspecified pre-existing hypertension complicating pregnancy, first trimester; Z3A.09 9 weeks gestation of pregnancy; K31.84 Gastroparesis; O99.611 Diseases of the digestive system complicating pregnancy, first trimester; E10.65 Type 1 diabetes mellitus with hyperglycemia; E10.43 Type 1 diabetes mellitus with diabetic autonomic (poly)neuropathy; F31.9 Bipolar disorder, unspecified; O99.341 Other mental disorders complicating pregnancy, first trimester; E10.42 Type 1 diabetes mellitus with diabetic polyneuropathy; Z20.822 Contact with and (suspected) exposure to COVID-19; I16.0 Hypertensive urgency; E86.0 Dehydration; O21.1 Hyperemesis gravidarum with metabolic disturbance; O99.281 Endocrine, nutritional and metabolic diseases complicating pregnancy, first trimester; D53.9 Nutritional anemia, unspecified; K21.00 Gastro-esophageal reflux disease with esophagitis, without bleeding; E87.6 Hypokalemia; E83.42 Hypomagnesemia; O99.011 Anemia complicating pregnancy, first trimester; F41.9 Anxiety disorder, unspecified; Z86.16 Personal history of COVID-19; Z86.711 Personal history of pulmonary embolism
CPT/HCPCS: 36415; 36416; 70450; 76700; 76856; 80048; 80053; 80306; 81001; 81003; 81015; 82607; 82746; 82805; 83036; 83605; 83690; 83735; 83930; 84100; 84443; 84702; 85025; 86780; 87040; 87086; 87491; 87591; 87633; 87798; 93005; 93010; 96372; 96374; 96375; 96376; C9113; G0378; J1200; J1650; J1815; J2270; J2405; J2550; J2765; J2916; J3010; J3475; J3480; J3490; J7120; U0002; U0003; U0005

== ENCOUNTER 2021-05-11 10:34 | Emergency (ER) | payer OTHER ==
[2021-05-11] MEDS ORDERED: diphenhydrAMINE 50 MG/ML VIAL ONE (11:21)
[2021-05-11] MEDS ORDERED: Morphine 4 MG/ML VIAL ONE (11:21)
[2021-05-11] MEDS ORDERED: Ondansetron PF 4 MG/2 ML Vial ONE (11:21)
[2021-05-11 11:27] LABS: Actual Bicarbonate (HCO3v) 25 mEq/L (22-28); Base Excess -0.6 mEq/L (-2.0 to +3.0); Calcium, Ionized (venous) 1.16 mmol/L (1.16-1.32); Chloride (VBG) 89 mmol/L (98-106); Hemoglobin (Hb) 11.9 g/dL (11.7-15.5); Potassium (VBG) 3.89 mmol/L (3.70-5.30); Puncture Site Other Site; Sodium 130.5 mmol/L (133-146); pH (venous) 7.35 (7.32-7.43)
[2021-05-11 11:29] LABS: Bilirubin Neg (Negative); Blood, Urine Negative (Negative); Clarity Clear (Clear); Glucose, Urine (Dipstick) >=1000 mg/dL (Negative); Ketone, Urine 50 mg/dL (Negative); Leukocyte Negative (Negative); Nitrite Negative (Negative); Protein, Urine (Dipstick) 30 mg/dl (Neg-Trace); Urobilinogen Normal mg/dL (Less than 2)
[2021-05-11 11:29] LABS: #Monocytes 0.3 10x3/uL (0.0-1.1); #Neutrophils 4.4 10x3/uL (1.5-8.4); %Basophils 0.5 % (0.0-2.0); %Eosinophils 0.2 % (0.0-6.0); %Lymphocytes 23.8 % (18.0-47.0); %Monocytes 4.5 % (0.0-10.0); %Neutrophils 70.8 % (40.0-75.0); Hemoglobin 11.3 g/dL (12.0-15.5); Mean Corpuscular HGB CONC 33.7 g/dL (32.0-36.0); Mean Corpuscular Hemoglobin 27.7 pg (27.0-33.0); Mean Corpuscular Volume 82.1 fl (81.6-98.3); Mean Platelet Volume 9.3 fl (7.4-10.4); Platelet Count 325 10x3/uL (150-450); RBC Distribution Width 13.8 % (11.5-14.5); Red Blood Cell (RBC) Count 4.08 10x6/uL (3.90-5.03); White Blood Cell (WBC) Count 6.2 10x3/uL (3.5-10.5)
[2021-05-11 11:38] LABS: Phosphorus 4.3 mg/dL (2.3-4.7)
[2021-05-11] MEDS ORDERED: Insulin Regular 300 UNITS/3 ML VIAL ONE (11:39)
[2021-05-11 11:40] LABS: ALT (SGPT) 14 U/L (8-55); AST (SGOT) 15 U/L (5-34); Albumin 4.8 g/dL (3.5-5.0); Alkaline Phosphatase 48 U/L (40-110); Anion Gap 20 mmol/L (10-20); BUN (Urea Nitrogen) 10 mg/dL (7.0-18.7); Bilirubin, Total 0.3 mg/dL (0.2-1.2); Calc. Creatinine Clearance 0 mL/min (70-130); Calcium 9.9 mg/dL (7.8-10.44); Carbon Dioxide 23 mmol/L (22-29); Chloride 90 mmol/L (98-107); Globulin 3.9 g/dL (2.4-3.5); Magnesium 1.9 mg/dL (1.6-2.6); Potassium 3.9 mmol/L (3.5-5.1); Protein, Total 8.7 g/dL (6.0-8.3); Sodium 129 mmol/L (136-145)
[2021-05-11 11:48] LABS: Glucose 605 mg/dL (70-105)
[2021-05-11 11:52] LABS: Bacteria/HPF Rare-Few HPF (None Seen); RBC/HPF 0-3 HPF (0-3); Squamous Epithelial 0-3 HPF (0-3); WBC/HPF 0-3 HPF (0-3)
== END 2021-05-11 13:50 | disposition home or self-care (01) ==
LOC: CSHERS 10:34
DX: O24.911 Unspecified diabetes mellitus in pregnancy, first trimester (principal); E10.65 Type 1 diabetes mellitus with hyperglycemia; O21.0 Mild hyperemesis gravidarum; O99.011 Anemia complicating pregnancy, first trimester; O16.1 Unspecified maternal hypertension, first trimester; E10.40 Type 1 diabetes mellitus with diabetic neuropathy, unspecified; Z3A.13 13 weeks gestation of pregnancy
CPT/HCPCS: 36416; 80053; 81003; 81015; 82010; 82805; 83735; 84100; 85025; 87086; 93005; 96374; 96375; J1200; J1815; J2270; J2405